=== PATIENT | female | born 1980 | race Caucasian/White ===

== ENCOUNTER 2016-11-11 15:31 | Emergency (ER) | payer MEDICAID ==
[~2016-11-11] VITALS: Ht 167.6 cm; Wt 85.7 kg
[~2016-11-11 15:31] MED LIST: ALBUAER3 IN; FLUT500M2 INH; PREN-96 PO
[2016-11-11 16:47] VITALS: BP 113/72
== END 2016-11-11 17:40 | disposition home or self-care (01) ==
LOC: ER 15:50
DX: S80.02XA Contusion of left knee, initial encounter (principal); J45.909 Unspecified asthma, uncomplicated; I48.91 Unspecified atrial fibrillation
CPT/HCPCS: 29505